=== PATIENT | female | born 1980 | race Caucasian/White ===

== ENCOUNTER 2016-08-19 13:32 | Emergency (ER) | payer OTHER ==
--- NOTE | 2016-08-19 18:59 | ED CLINICAL REPORT ---
Clinical Report - Physicians/Mid Levels [facility] [address] [place] [address] 08/19/2016 13:32 Patient: ANDI CARR Time Seen: 14:06. Arrived- By private vehicle. Historian- patient. HISTORY OF PRESENT ILLNESS Chief Complaint: LOWER EXTREMITY PAIN and SWELLING and ; ;(Rash). This started today pain and swelling started a few days ago and is still present. Severity is described as being mild. The quality is noted to be "pain". Not worsened by anything and relieved by anything. Symptoms located in the area of the right leg and left leg. The patient has had redness and swelling. No difficulty walking. No bladder dysfunction, bowel dysfunction, sensory loss or motor loss. ( patient states that she has had mild swelling and a dull pain shooting up her right leg. She states that today she noticed bright red patches on her lower legs, just above her ankles, especially on the left side. Patient states this is never happened before. She states she has been feeling fatigued recently although she is in pre-nursing school, and has been preparing for finals. Patient does note that she has had episodes previously of joint aches and has been worked up for autoimmune disorders. Patient states when she was seen at [facility] emergency department a few months back, she was sent and an elevated CRP and sedimentation rate. She was referred to an card grinder and to a aircraft charter dispatcher by her primary care physician, but she states that the aircraft charter dispatcher did not do any tests, and all the testing by other doctors was negative. She states her primary care physician has placed her on a medication for rheumatoid arthritis presumptively, but she does not remember the name of the medication. Patient has not had any recent illnesses.). Patient denies an injury. Similar symptoms previously: None. Recent medical care: The patient was seen recently at another facility in a clinic. REVIEW OF SYSTEMS No cough, chest pain, difficulty breathing, fever or enlarged lymph nodes. No neck pain, back pain, headache, blurred vision or sore throat. No abdominal pain, vomiting, diarrhea, black stools or difficulty with urination. No bloody stools. The patient has had skin rash. All systems otherwise negative, except as recorded above. PAST HISTORY Problems: Immunizations. LNMP - Last Normal Menstrual Period. Additional Surgeries: . Dilatation & Curettage. Hysterectomy. Laparoscopy. Medications: Vitamins. Meloxicam Oral (Tablet 15 mg) 1 tablet, daily. Allergies: IV Contrast. Tape. SOCIAL HISTORY Smoker- current status unknown. Occasional alcohol use. No drug use. ADDITIONAL NOTES The nursing notes have been reviewed. PHYSICAL EXAM Vital Signs: 08/19/2016 14:09 BP: 142/86. HR: 74. RR: 20. O2 saturation: 99%. Pain level now: 510. Have been reviewed. Appearance: Alert. Oriented X3. No acute distress. Eyes: Pupils equal, round and reactive to light. Eyes normal inspection. ENT: Nose normal. Neck: Normal inspection. CVS: Normal heart rate and rhythm. Heart sounds normal. Respiratory: No respiratory distress. Breath sounds normal. Abdomen: Soft and nontender. Back: Normal inspection. Skin: Skin intact. Skin warm and dry. Extremities: Lower extremities exhibit normal ROM. (Patient has no pitting edema but doeshave slight nonpitting edema of the left lower extremity compared to the right. She has small patches of nonblanching, intensely erythematous discoloration on her distal left lower leg, just superior to her medial malleolus. No evidence of trauma is noted. A very small, similar area of a purpuric rash is noted on the distal medial right lower leg also.). Gait: Normal gait. Neuro: No motor deficit. No sensory deficit. (Patient is grossly oriented.). LABS, X-RAYS, AND EKG Lower Extremity Sonography: Negative exam. No compression abnormality noted. Visualized common femoral artery and common femoral vein, superficial femoral artery and superficial femoral vein, deep femoral artery and deep femoral vein and popliteal artery and popliteal vein. Vessels patent. Augmented flow present with calf compression. Study type: utilized duplex sonography. The exam was performed by a sound effects technician. The study was interpreted by the radiologist and discussed with the radiologist. Prior studies were not available for comparison. Laboratory Tests: CBC w Diff: (BRYANT: 08/19/2016 16:25) ( MsgRcvd 08/19/2016 17:11) Final results Test Result Flag Units (Reference) WHITE BLOOD COUNT 6.9 K/uL (4.5-11.5) RED BLOOD COUNT 4.41 M/uL (4.00-5.20) HEMOGLOBIN 13.2 gm/dL (12.0-16.0) HEMATOCRIT 39.6 % (36.0-46.0) MEAN CELL VOLUME 90 fL (80-100) MEAN CORPUSCULAR HGB 30 pg (26-34) MEAN CORPUSCULAR HGB CONC 33 g/dL (31-37) RED CELL DISTRIBUTION WIDTH 13.1 % (11.6-14.8) PLATELET COUNT 218 K/uL (150-400) NEUTROPHIL % 58.4 % (50-75) LYMPH % 34.7 % (25-40) MONO % 5.9 % (3-14) EOSINOPHIL % 0.8 % (0-4) BASOPHIL % 0.2 % (0-2) SED RATE WESTERGREN 7 mm/hr (0-20) PT with INR: (BRYANT: 08/19/2016 16:25) ( [facility] 08/19/2016 16:54) Final results Test Result Flag Units (Reference) INR 1.0 (0.8-1.2) Low Intensity Therapy: INR 1.5-2.0 PT range 18.5-23.1Mod.Intensity Therapy: INR 2.0-3.0 PT range 23.1-31.5High Intensity Therapy: INR 2.5-3.5 PT range 27.4-35.5High Intensity Therapy 2: INR 3.0-4.0 PT range 31.5-39.3 CMP: (BRYANT: 08/19/2016 16:25) ( [facility] Final results Test Result Flag Units (Reference) GLUCOSE 98 mg/dL (70-110) BUN 21 H mg/dL (7-18) CREATININE 0.7 mg/dL (0.6-1.3) Estimated GFR >60 mL/min Estimated GFR- >60 mL/min Note: Persistent reduction over 3 months in eGFR<60 mL/min/1.73 m2 defines CKD. Patients with eGFR values>=60 mL/min/1.73 m2 may also have CKD if evidence ofpersistent proteinuria. Additional information may be foundat www.kidney.org. SODIUM 138 mmol/L (136-145) POTASSIUM 4.0 mmol/L (3.5-5.1) CHLORIDE 106 mmol/L (98-107) CARBON DIOXIDE 25 mmol/L (21-32) CALCIUM 9.3 mg/dL (8.5-10.1) TOTAL PROTEIN 7.7 g/dL (6.4-8.2) ALBUMIN 4.1 g/dL (3.3-5.0) BILIRUBIN, TOTAL 0.3 mg/dL (0.0-1.0) ALKALINE PHOSPHATASE 75 U/L (46-116) AST (SGOT) 12 L U/L (15-37) ALT (SGPT) 21 U/L (12-78) C-REACTIVE PROTEIN 0.5 mg/dL (0.0-0.9) . Pulse Oximetry: 08/19/2016 14:09 O2 saturation: 99%. (FIO2 - room air). Interpretation: normal. PROGRESS AND PROCEDURES Course of Care: Patient's findings appeared consistent with a vasculitis, though the etiology of this was unclear. Patient did relate to me that she has a strong history of various autoimmune disorders in her family, including Dianelys's thyroiditis and Graves' disease in her siblings, and rheumatoid arthritis in her grandmother. I did work the patient up for her purpuric rash as well as her left lower extremity pain and swelling. Laboratory studies were obtained, which were unremarkable, including inflammatory markers. A left lower extremity ultrasound revealed no DVT. I did not find any evidence of an emergent condition the emergency department. Patient's primary care physician has discussed with the patient getting a second opinion from a aircraft charter dispatcher, and I feel this is likely a good idea to further sort out the patient's problems. Patient counseled in person regarding the patient's stable condition, test results, diagnosis and need for follow-up. Concerns were addressed. Old medical records reviewed. Disposition: Discharged. Condition: stable. CLINICAL IMPRESSION (Vasculitis). INSTRUCTIONS (Your labs and ultrasound looked good. There is no evidence of a serious condition at this time. Your rash appears consistent with a vasculitis, which is an inflammation of blood vessels. This is often caused by autoimmune or hyperimmune conditions. It is important that you follow up for further evaluation, perhaps with a second aircraft charter dispatcher,to help sort out what is going on with your joint aches, fatigue, and potentially, vasculitis.). Warnings: Further evaluation is necessary. GENERAL WARNINGS: Return or contact your physician immediately if your condition worsens or changes unexpectedly, if not improving as expected, or if other problems arise. Follow-up: Follow up with your doctor. Call for the next available appointment. Reason for referral: Follow up ER visit. Understanding of the discharge instructions verbalized by patient. (Electronically signed by Gabriela Glasgow MD 08/19/2016 22:20)
--- NOTE | 2016-08-19 18:59 | ED ORDER SUMMARY ---
..... Patient: ANDI CARR OrderSheet [facility] VisitID: [id number] [place] [address] 35y, F Registration Date/Time: 08/19/2016 ORDER SHEET Weight: 104.3 kg (stated) Allergies: IV Contrast, Tape GENERAL ORDERS: US Venous Left Urgent (16:07 08/19/2016 Damaris CUADRA) (Ack 16:19 Robert) (17:54 KHoerner) CBC w Diff Urgent (16:16 08/19/2016 Damaris CUADRA) (Ack 16:19 Robert) (16:30 JSimbeck R.N.) CMP Urgent (16:16 08/19/2016 Damaris CUADRA) (Ack 16:19 Robert) (16:30 JSimbeck R.N.) PT with INR Urgent (16:16 08/19/2016 Damaris CUADRA) (Ack 16:19 Robert) (16:30 JSimbeck R.N.) CRP Urgent (16:16 08/19/2016 Damaris CUADRA) (Ack 16:19 Robert) (16:30 JSimbeck R.N.) Sed Rate Urgent (16:16 08/19/2016 Damaris CUADRA) (Ack 16:19 Robert) (16:30 JSimbeck R.N.) MEDICATION ORDERS: IV FLUIDS: IV Saline Lock (16:16 08/19/2016 Damaris CUADRA) (16:30 JSimbeck R.N.) ORDER SHEET NOTES: [Electronically signed by aMc Yun R.N. (19:16 08/19/2016)] [Electronically signed by Gabriela Glasgow MD (22:20 08/19/2016)] [Electronically locked/signed by Mac Yun R.N. (19:16 08/19/2016)]
--- NOTE | 2016-08-19 18:59 | ED NURSING NOTES ---
Clinical Report - Nurses [facility] [address] [place] [address] 08/19/2016 13:32 [id number] Triage time 14:09. Acuity: LEVEL 4. Chief Complaint: (Erythematous rash, pain, swelling on left lower leg, similar but milder on the right lower leg. Onset yesterday afternoon. No trauma.). SEPSIS SCREEN: Sepsis Screen. Negative (no infection suspected/documented). MAKEDA COMA SCORE: Makeda Coma Scale: 15- eyes open spontaneously (4); best verbal response- oriented x 4 (5); best motor response- obeys commands (6). --14:15 Mac Yun R.N. 14:08/19/16. Temp: 98.8 F (oral). --14:15 Mac Yun R.N. 14:08/19/16. BP: 142/86. HR: 74. RR: 20. O2 saturation: 99% on room air. Pain level now: 07/18. --19:13 Mac Yun R.N. Weight: 104.3 kg stated. Height/Length: 69 inches Per Patient. BMI: 34. --14:15 Mac Yun R.N. Medications Meloxicam Oral (Tablet 15 mg) 1 tablet, daily. --14:12 Mac Yun R.N. Vitamins. --14:12 Mac Yun R.N. Allergies IV Contrast. Tape. --14:12 Mac Yun R.N. History Arrived by private vehicle. Historian: patient. SOCIAL HX: Smoker- current status unknown (cigarette). Occasional alcohol use. No drug use. ABUSE ASSESSMENT: No report of abuse. --14:15 Mac Yun R.N. PROBLEMS: Abdominal Pain. --14:13 Mac Yun R.N. ADDITIONAL SURGERIES: . Dilatation & Curettage. Hysterectomy. Laparoscopy. --14:13 Mac Yun R.N. The following entry was struck by Gabriela Glasgow MD, 19:02 Reason - duplicate <<STRICKEN ENTRY-- Previous Abdominal Surgery. --19:28 Gabriela Glasgow MD --END STRIKE>>. Interventions ID band on patient. To treatment room. --14:15 Mac Yun R.N. NURSING PROGRESS NOTES 16:25 08/19/2016 Site #1 started via IV in the right antecubital space with an 18g angiocath, with aseptic technique and good blood return; one attempt. Blood drawn: rainbow set. Labeled in the presence of the patient and sent to the lab. Saline lock flushed with 10 mL saline. --16:30 Mac Yun R.N. ( US @ bedside). --17:23 Mac Yun R.N. DISPOSITION / DISCHARGE 19:06 08/19/2016 Site #1 removed upon discharge. Bandage applied. --19:15 Mac Yun R.N. Departure time: 1907. Condition at departure: unchanged and stable. No learning barriers present. Discharge instructions provided and reviewed with the patient. Reviewed referrals. Patient verbalized understanding. Written instructions provided in Azeri. The patient was discharged by the physician. She was discharged home and accompanied by tanning wheel filler. She left the Emergency Department ambulatory and via private vehicle. Litigation Claim Representative driving. --19:15 Mac Yun R.N. 19:06 08/19/16. BP: 144/87. HR: 72. RR: 16. O2 saturation: 99% on room air. Temp: 98.1 F (oral). Pain level now: 07/18. --19:15 Mac Yun R.N. Locked/Released at 08/19/2016 19:16 by Mac Yun R.N.
--- NOTE | 2016-08-19 18:59 | ED ORDER SUMMARY ---
..... Patient: ANDI CARR OrderSheet [facility] VisitID: [id number] [place] [address] 35y, F Registration Date/Time: 08/19/2016 ORDER SHEET Weight: 104.3 kg (stated) Allergies: IV Contrast, Tape GENERAL ORDERS: US Venous Left Urgent (16:07 08/19/2016 Damaris CUADRA) (Ack 16:19 Robert) (17:54 KHoerner) CBC w Diff Urgent (16:16 08/19/2016 Damaris CUADRA) (Ack 16:19 Robert) (16:30 JSimbeck R.N.) CMP Urgent (16:16 08/19/2016 Damaris CUADRA) (Ack 16:19 Robert) (16:30 JSimbeck R.N.) PT with INR Urgent (16:16 08/19/2016 Damaris CUADRA) (Ack 16:19 Robert) (16:30 JSimbeck R.N.) CRP Urgent (16:16 08/19/2016 Damaris CUADRA) (Ack 16:19 Robert) (16:30 JSimbeck R.N.) Sed Rate Urgent (16:16 08/19/2016 Damaris CUADRA) (Ack 16:19 Robert) (16:30 JSimbeck R.N.) MEDICATION ORDERS: IV FLUIDS: IV Saline Lock (16:16 08/19/2016 Damaris CUADRA) (16:30 JSimbeck R.N.) ORDER SHEET NOTES: [Electronically signed by Mac Yun R.N. (19:16 08/19/2016)] [Electronically signed by Gabriela Glasgow MD (22:20 08/19/2016)] [Electronically locked/signed by Mac Yun R.N. (19:16 08/19/2016)]
--- NOTE | 2016-08-19 18:59 | ED CLINICAL REPORT ---
Clinical Report - Physicians/Mid Levels [facility] [address] [place] [address] 08/19/2016 13:32 Patient: ANDI CARR Time Seen: 14:06. Arrived- By private vehicle. Historian- patient. HISTORY OF PRESENT ILLNESS Chief Complaint: LOWER EXTREMITY PAIN and SWELLING and ; ;(Rash). This started today pain and swelling started a few days ago and is still present. Severity is described as being mild. The quality is noted to be "pain". Not worsened by anything and relieved by anything. Symptoms located in the area of the right leg and left leg. The patient has had redness and swelling. No difficulty walking. No bladder dysfunction, bowel dysfunction, sensory loss or motor loss. ( patient states that she has had mild swelling and a dull pain shooting up her right leg. She states that today she noticed bright red patches on her lower legs, just above her ankles, especially on the left side. Patient states this is never happened before. She states she has been feeling fatigued recently although she is in pre-nursing school, and has been preparing for finals. Patient does note that she has had episodes previously of joint aches and has been worked up for autoimmune disorders. Patient states when she was seen at [facility] emergency department a few months back, she was sent and an elevated CRP and sedimentation rate. She was referred to an teachers aide and to a delivery rep by her primary care physician, but she states that the delivery rep did not do any tests, and all the testing by other doctors was negative. She states her primary care physician has placed her on a medication for rheumatoid arthritis presumptively, but she does not remember the name of the medication. Patient has not had any recent illnesses.). Patient denies an injury. Similar symptoms previously: None. Recent medical care: The patient was seen recently at another facility in a clinic. REVIEW OF SYSTEMS No cough, chest pain, difficulty breathing, fever or enlarged lymph nodes. No neck pain, back pain, headache, blurred vision or sore throat. No abdominal pain, vomiting, diarrhea, black stools or difficulty with urination. No bloody stools. The patient has had skin rash. All systems otherwise negative, except as recorded above. PAST HISTORY Problems: Immunizations. LNMP - Last Normal Menstrual Period. Additional Surgeries: . Dilatation & Curettage. Hysterectomy. Laparoscopy. Medications: Vitamins. Meloxicam Oral (Tablet 15 mg) 1 tablet, daily. Allergies: IV Contrast. Tape. SOCIAL HISTORY Smoker- current status unknown. Occasional alcohol use. No drug use. ADDITIONAL NOTES The nursing notes have been reviewed. PHYSICAL EXAM Vital Signs: 08/19/2016 14:09 BP: 142/86. HR: 74. RR: 20. O2 saturation: 99%. Pain level now: 510. Have been reviewed. Appearance: Alert. Oriented X3. No acute distress. Eyes: Pupils equal, round and reactive to light. Eyes normal inspection. ENT: Nose normal. Neck: Normal inspection. CVS: Normal heart rate and rhythm. Heart sounds normal. Respiratory: No respiratory distress. Breath sounds normal. Abdomen: Soft and nontender. Back: Normal inspection. Skin: Skin intact. Skin warm and dry. Extremities: Lower extremities exhibit normal ROM. (Patient has no pitting edema but doeshave slight nonpitting edema of the left lower extremity compared to the right. She has small patches of nonblanching, intensely erythematous discoloration on her distal left lower leg, just superior to her medial malleolus. No evidence of trauma is noted. A very small, similar area of a purpuric rash is noted on the distal medial right lower leg also.). Gait: Normal gait. Neuro: No motor deficit. No sensory deficit. (Patient is grossly oriented.). LABS, X-RAYS, AND EKG Lower Extremity Sonography: Negative exam. No compression abnormality noted. Visualized common femoral artery and common femoral vein, superficial femoral artery and superficial femoral vein, deep femoral artery and deep femoral vein and popliteal artery and popliteal vein. Vessels patent. Augmented flow present with calf compression. Study type: utilized duplex sonography. The exam was performed by a telecommunications field technician. The study was interpreted by the radiologist and discussed with the radiologist. Prior studies were not available for comparison. Laboratory Tests: CBC w Diff: (BRYANT: 08/19/2016 16:25) ( MsgRcvd 08/19/2016 17:11) Final results Test Result Flag Units (Reference) WHITE BLOOD COUNT 6.9 K/uL (4.5-11.5) RED BLOOD COUNT 4.41 M/uL (4.00-5.20) HEMOGLOBIN 13.2 gm/dL (12.0-16.0) HEMATOCRIT 39.6 % (36.0-46.0) MEAN CELL VOLUME 90 fL (80-100) MEAN CORPUSCULAR HGB 30 pg (26-34) MEAN CORPUSCULAR HGB CONC 33 g/dL (31-37) RED CELL DISTRIBUTION WIDTH 13.1 % (11.6-14.8) PLATELET COUNT 218 K/uL (150-400) NEUTROPHIL % 58.4 % (50-75) LYMPH % 34.7 % (25-40) MONO % 5.9 % (3-14) EOSINOPHIL % 0.8 % (0-4) BASOPHIL % 0.2 % (0-2) SED RATE WESTERGREN 7 mm/hr (0-20) PT with INR: (BRYANT: 08/19/2016 16:25) ( [facility] 08/19/2016 16:54) Final results Test Result Flag Units (Reference) INR 1.0 (0.8-1.2) Low Intensity Therapy: INR 1.5-2.0 PT range 18.5-23.1Mod.Intensity Therapy: INR 2.0-3.0 PT range 23.1-31.5High Intensity Therapy: INR 2.5-3.5 PT range 27.4-35.5High Intensity Therapy 2: INR 3.0-4.0 PT range 31.5-39.3 CMP: (BRYANT: 08/19/2016 16:25) [facility] Final results Test Result Flag Units (Reference) GLUCOSE 98 mg/dL (70-110) BUN 21 H mg/dL (7-18) CREATININE 0.7 mg/dL (0.6-1.3) Estimated GFR >60 mL/min Estimated GFR- >60 mL/min Note: Persistent reduction over 3 months in eGFR<60 mL/min/1.73 m2 defines CKD. Patients with eGFR values>=60 mL/min/1.73 m2 may also have CKD if evidence ofpersistent proteinuria. Additional information may be foundat www.kidney.org. SODIUM 138 mmol/L (136-145) POTASSIUM 4.0 mmol/L (3.5-5.1) CHLORIDE 106 mmol/L (98-107) CARBON DIOXIDE 25 mmol/L (21-32) CALCIUM 9.3 mg/dL (8.5-10.1) TOTAL PROTEIN 7.7 g/dL (6.4-8.2) ALBUMIN 4.1 g/dL (3.3-5.0) BILIRUBIN, TOTAL 0.3 mg/dL (0.0-1.0) ALKALINE PHOSPHATASE 75 U/L (46-116) AST (SGOT) 12 L U/L (15-37) ALT (SGPT) 21 U/L (12-78) C-REACTIVE PROTEIN 0.5 mg/dL (0.0-0.9) . Pulse Oximetry: 08/19/2016 14:09 O2 saturation: 99%. (FIO2 - room air). Interpretation: normal. PROGRESS AND PROCEDURES Course of Care: Patient's findings appeared consistent with a vasculitis, though the etiology of this was unclear. Patient did relate to me that she has a strong history of various autoimmune disorders in her family, including Dianelys's thyroiditis and Graves' disease in her siblings, and rheumatoid arthritis in her grandmother. I did work the patient up for her purpuric rash as well as her left lower extremity pain and swelling. Laboratory studies were obtained, which were unremarkable, including inflammatory markers. A left lower extremity ultrasound revealed no DVT. I did not find any evidence of an emergent condition the emergency department. Patient's primary care physician has discussed with the patient getting a second opinion from a delivery rep, and I feel this is likely a good idea to further sort out the patient's problems. Patient counseled in person regarding the patient's stable condition, test results, diagnosis and need for follow-up. Concerns were addressed. Old medical records reviewed. Disposition: Discharged. Condition: stable. CLINICAL IMPRESSION (Vasculitis). INSTRUCTIONS (Your labs and ultrasound looked good. There is no evidence of a serious condition at this time. Your rash appears consistent with a vasculitis, which is an inflammation of blood vessels. This is often caused by autoimmune or hyperimmune conditions. It is important that you follow up for further evaluation, perhaps with a second delivery rep,to help sort out what is going on with your joint aches, fatigue, and potentially, vasculitis.). Warnings: Further evaluation is necessary. GENERAL WARNINGS: Return or contact your physician immediately if your condition worsens or changes unexpectedly, if not improving as expected, or if other problems arise. Follow-up: Follow up with your doctor. Call for the next available appointment. Reason for referral: Follow up ER visit. Understanding of the discharge instructions verbalized by patient. (Electronically signed by Gabriela Glasgow MD 08/19/2016 22:20)
--- NOTE | 2016-08-19 18:59 | ED NURSING NOTES ---
Clinical Report - Nurses [facility] [address] [place] [address] 08/19/2016 13:32 [id number] Triage time 14:09. Acuity: LEVEL 4. Chief Complaint: (Erythematous rash, pain, swelling on left lower leg, similar but milder on the right lower leg. Onset yesterday afternoon. No trauma.). SEPSIS SCREEN: Sepsis Screen. Negative (no infection suspected/documented). MAKEDA COMA SCORE: Makeda Coma Scale: 15- eyes open spontaneously (4); best verbal response- oriented x 4 (5); best motor response- obeys commands (6). --14:15 Mac Yun R.N. 14:08/19/16. Temp: 98.8 F (oral). --14:15 Mac Yun R.N. 14:08/19/16. BP: 142/86. HR: 74. RR: 20. O2 saturation: 99% on room air. Pain level now: 07/18. --19:13 Mac Yun R.N. Weight: 104.3 kg stated. Height/Length: 69 inches Per Patient. BMI: 34. --14:15 Mac Yun R.N. Medications Meloxicam Oral (Tablet 15 mg) 1 tablet, daily. --14:12 Mac Yun R.N. Vitamins. --14:12 Mac Yun R.N. Allergies IV Contrast. Tape. --14:12 Mac Yun R.N. History Arrived by private vehicle. Historian: patient. SOCIAL HX: Smoker- current status unknown (cigarette). Occasional alcohol use. No drug use. ABUSE ASSESSMENT: No report of abuse. --14:15 Mac Yun R.N. PROBLEMS: Abdominal Pain. --14:13 Mac Yun R.N. ADDITIONAL SURGERIES: . Dilatation & Curettage. Hysterectomy. Laparoscopy. --14:13 Mac Yun R.N. The following entry was struck by Gabriela Glasgow MD, 19:02 Reason - duplicate <<STRICKEN ENTRY-- Previous Abdominal Surgery. --19:28 Gabriela Glasgow MD --END STRIKE>>. Interventions ID band on patient. To treatment room. --14:15 Mac Yun R.N. NURSING PROGRESS NOTES 16:25 08/19/2016 Site #1 started via IV in the right antecubital space with an 18g angiocath, with aseptic technique and good blood return; one attempt. Blood drawn: rainbow set. Labeled in the presence of the patient and sent to the lab. Saline lock flushed with 10 mL saline. --16:30 Mac Yun R.N. ( US @ bedside). --17:23 Mac Yun R.N. DISPOSITION / DISCHARGE 19:06 08/19/2016 Site #1 removed upon discharge. Bandage applied. --19:15 Mac Yun R.N. Departure time: 1907. Condition at departure: unchanged and stable. No learning barriers present. Discharge instructions provided and reviewed with the patient. Reviewed referrals. Patient verbalized understanding. Written instructions provided in Irish. The patient was discharged by the physician. She was discharged home and accompanied by technical professional. She left the Emergency Department ambulatory and via private vehicle. Logging Operations Inspector driving. --19:15 Mac Yun R.N. 19:06 08/19/16. BP: 144/87. HR: 72. RR: 16. O2 saturation: 99% on room air. Temp: 98.1 F (oral). Pain level now: 07/18. --19:15 Mac Yun R.N. Locked/Released at 08/19/2016 19:16 by Mac Yun R.N.
--- NOTE | 2016-08-19 20:10 | DIAGNOSTIC IMAGING REPORT ---
PROCEDURE: US VENOUS - LEFT EXT INDICATION: Left ankle pain and erythema. TECHNIQUE: Color Doppler duplex imaging of the deep and superficial venous system without and with compression. COMPARISON: None. FINDINGS: Deep and superficial venous system of the left lower extremity is within normal limits. There is no evidence of deep vein thrombosis or superficial thrombophlebitis. IMPRESSION: 1. Negative venous ultrasound of the left lower extremity.
--- NOTE | 2016-08-19 22:20 | ED MAR SUMMARY ---
..... Medication Administration Record [facility] [address] [place], [place] [id number] Patient: ANDI CARR Visit ID: [id number] 35y, F Weight: 104.3 kg Height/Length: 69 in BMI: 34 ALLERGIES: IV Contrast, Tape
--- NOTE | 2016-08-19 22:20 | ED DISCHARGE INSTRUCTIONS ---
Patient: ANDI CARR General Instructions [facility] VisitID: [id number] [place] [address] 35y, F Registration Date/Time: 08/19/2016 (Vasculitis). INSTRUCTIONS (Your labs and ultrasound looked good. There is no evidence of a serious condition at this time. Your rash appears consistent with a vasculitis, which is an inflammation of blood vessels. This is often caused by autoimmune or hyperimmune conditions. It is important that you follow up for further evaluation, perhaps with a second telephone lineman,to help sort out what is going on with your joint aches, fatigue, and potentially, vasculitis.). Warnings: Further evaluation is necessary. GENERAL WARNINGS: Return or contact your physician immediately if your condition worsens or changes unexpectedly, if not improving as expected, or if other problems arise. Follow-up: Follow up with your doctor. Call for the next available appointment. Reason for referral: Follow up ER visit. Understanding of the discharge instructions verbalized by patient. (Electronically signed by Gabriela Glasgow MD 08/19/2016 22:20)
--- NOTE | 2016-08-19 22:20 | ED MED RECONCILIATION SUMMARY ---
Patient: ANDI CARR Medication Reconciliation Report [facility] VisitID: [id number] [address] [place] [address] 35y, F Registration Date/Time: 08/19/2016 Weight: 104.3 kg Height/Length: 69 in. BMI: 34.0 ALLERGIES: IV Contrast, Tape The patient's Home Medications are listed below: THE FOLLOWING MEDICATIONS NEED TO BE RECONCILED: Meloxicam Oral (15 mg) 1 tablet, daily Vitamins The source(s) of the original Home Medication information: Not obtained. The following Medications were given to the patient in the Emergency Department: None. The following Medications were prescribed to the patient: None.
--- NOTE | 2016-08-19 22:20 | ED MED RECONCILIATION SUMMARY ---
Patient: ANDI CARR Medication Reconciliation Report [facility] VisitID: [id number] [address] [place] [address] 35y, F Registration Date/Time: 08/19/2016 Weight: 104.3 kg Height/Length: 69 in. BMI: 34.0 ALLERGIES: IV Contrast, Tape The patient's Home Medications are listed below: THE FOLLOWING MEDICATIONS NEED TO BE RECONCILED: Meloxicam Oral (15 mg) 1 tablet, daily Vitamins The source(s) of the original Home Medication information: Not obtained. The following Medications were given to the patient in the Emergency Department: None. The following Medications were prescribed to the patient: None.
--- NOTE | 2016-08-19 22:20 | ED MAR SUMMARY ---
..... Medication Administration Record [facility] [address] [place], [place] [id number] Patient: ANDI CARR Visit ID: [id number] 35y, F Weight: 104.3 kg Height/Length: 69 in BMI: 34 ALLERGIES: IV Contrast, Tape
--- NOTE | 2016-08-19 22:20 | ED DISCHARGE INSTRUCTIONS ---
Patient: ANDI CARR General Instructions [facility] [place] VisitID: [id number] [place] [address] 35y, F Registration Date/Time: 08/19/2016 (Vasculitis). INSTRUCTIONS (Your labs and ultrasound looked good. There is no evidence of a serious condition at this time. Your rash appears consistent with a vasculitis, which is an inflammation of blood vessels. This is often caused by autoimmune or hyperimmune conditions. It is important that you follow up for further evaluation, perhaps with a second cruller maker,to help sort out what is going on with your joint aches, fatigue, and potentially, vasculitis.). Warnings: Further evaluation is necessary. GENERAL WARNINGS: Return or contact your physician immediately if your condition worsens or changes unexpectedly, if not improving as expected, or if other problems arise. Follow-up: Follow up with your doctor. Call for the next available appointment. Reason for referral: Follow up ER visit. Understanding of the discharge instructions verbalized by patient. (Electronically signed by Gabriela Glasgow MD 08/19/2016 22:20)
== END 2016-08-19 19:07 | disposition home or self-care (01) ==
LOC: ED SRH 13:32
DX: L95.9 Vasculitis limited to the skin, unspecified (principal); Z79.899 Other long term (current) drug therapy; Z91.048 Other nonmedicinal substance allergy status